=== PATIENT | male | born 1965 | race Caucasian/White ===

== ENCOUNTER 2017-03-21 10:17 | Emergency (ER) | payer OTHER ==
[2017-03-21] VITALS (8 sets, daily range): BP systolic 136–174; BP diastolic 86–102; PULSE 104–145; RESP 20–25; O2SAT 96–100
[~2017-03-21] VITALS: Ht 185.4 cm; Wt 113.6 kg
[2017-03-21] MEDS ORDERED: MeTOProlol 1 mg/mL 5 mL Inj IVPUSH ONE ×3 (10:35→12:05)
[2017-03-21 10:42] LABS: BASOPHILS % (AUTO) 0.2 % (0-3); EOSINOPHILS % (AUTO) 1.2 % (0-5); MONOCYTES % (AUTO) 9.8 % (4-12); Mean Corpuscular Hemoglobin 32.8 pg (27.0-35.0); NEUTROPHILS % (AUTO) 76.4 % (40-74); Platelet Count 253 bil/L (150-400)
--- NOTE | 2017-03-21 10:51 | DRSVH ---
PROCEDURE: X-RAY CHEST ONE VIEW, PORTABLE ([id number]) INDICATIONS: chest pain TECHNIQUE: One view of the chest was acquired. COMPARISON: None. FINDINGS: Surgical changes and devices: None. Lungs and pleura: No pleural effusions or pneumothorax. Lungs are clear. Mediastinum: Mediastinal contours appear normal. Heart size is normal. Bones and chest wall: No suspicious bony lesions. Overlying soft tissues appear unremarkable. IMPRESSION: No acute process. Dictated by: Alejandra Doan M.D. on 03/21/2017 at 10:49 Approved by: Alejandra Doan M.D. on 03/21/2017 at 10:49
--- NOTE | 2017-03-21 10:53 | ED.REPORT ---
HPI-Chest Pain 40 and Over Date of Service Mar 21, 2017 ED Provider: Haramn Joel MD The patient is a 52 year old male with history of borderline hypertension and anxiety, who presents to the emergency department from urgent care by EMS for tachycardia. Last night around 1200 AM the patient noticed chest pressure. He was already awake when his symptoms began. Of note the patient had used Viagra for the first time earlier in the evening. This morning he continued to have the chest pressure and also noticed palpitations. He has had similar symptoms in the past related to his anxiety but this episode has lasted longer and is more severe. He denies shortness of breath, diaphoresis, nausea, lightheadedness. He was given aspirin at urgent care. He does not have history of cardiac disease. His uncle had a heart attack at the age of 48. He does not use any illicit drugs. He drinks alcohol 6/7 days a week. He does not notice shakes or tremors if he does not drink. Nursing Notes Stated Complaint: TACHYCARDIA Chief Complaint: Dysrhythmia/Cardiac Nursing Notes Reviewed: Yes (Meds not reconciled) General Time Seen by MD: 10:24 Chief Complaint Chest pressure, Other (palpitations) Hx Obtained From: Patient, EMS Arrived By: Ambulance Sudden in Onset?: Yes Onset Occurred: Yesterday Symptom Duration: Since onset Location: : Chest left: Chest right Quality: Pressure Radiation: : Does not radiate Severity: Current: Mild Severity: Maximum: Moderate Recent Healthcare: No recent hospitalization, Recent doctor visit Similar Sx Previous: Yes (but not as severe) Past Medical History Past Medical History Borderline hypertension Anxiety Family History Noncontributory Smoking History Unknown if Ever Smoker Social History Drinks 6/7 days per week Other Social History: Local resident Ambulatory Status Independent Review of Systems Respiratory: Denies: Shortness of breath Cardiovascular: Reports: Chest pain, Palpitations GI: Denies: Nausea Skin: Denies Diaphoresis Neurologic: Denies: Lightheaded Complete sys rev & neg: except as marked. Physical Exam Initial Vital Signs Vital Signs (First) Date Time Temp Pulse Resp B/P Pulse Ox O2 Delivery O2 Flow Rate FiO2 03/21/17 10:24 37.4 145 25 174/88 100 Room Air Initial VS: Reviewed, Vital signs abnormal Head / Eyes: Atraumatic, Normocephalic, PERRL ENT: Mucous membranes moist, Conjunctiva normal, No scleral icterus Lymphatic: No lymphadenopathy Extremities: Vascular intact, Neuro intact, No swelling, No tenderness Skin: Warm, Dry, No cyanosis Neurologic: Alert, Oriented, Nonfocal Psychiatric: Mood/affect normal, Behavior normal, Normal thought content General/Constitutional: Awake, Alert, No acute distress, Well appearing, Cooperative Respiratory / Chest: Atraumatic, Breath sounds NL, Breath sounds = bilat, No respiratory distress, No rales, No rhonchi, No wheezing, No stridor, No chest tenderness Cardiovascular: Heart sounds NL, No gallop, No murmurs, No rubs, Cap refill not delayed, Peripheral circulation NL, Pulses = bilaterally, No gross BP differential Heart Rate / Rhythm: Positive: Tachycardia Abdomen: Atraumatic, Soft, Non-tender, McBurney's non-tender, No guarding, No rebound, BS normoactive, No distention, No hernia, No palpable mass Neck: Supple, Full range of motion, No swelling, Non-tender, No midline vertebral tend, No JVD Lower Extremity / Pelvis / MS: No swelling, Neurologic intact, Vascular intact , No edema Interpretation & Diagnostics Lab Results Interpretation Result Diagram: 03/21/17 1035 03/21/17 1035 Test 03/21/17 10:35 White Blood Count 13.2th/mm3 (3.8-10.1) Red Blood Count 4.61mil/mm3 (4.40-5.80) Hemoglobin 15.1g/dL (13.8-17.2) Hematocrit 42.4% (41.0-50.0) Mean Corpuscular Volume 92.0fL (81-100) Mean Corpuscular Hemoglobin 32.8pg (27.0-35.0) Mean Corpuscular Hemoglobin Concent 35.6% (32.0-37.0) Red Cell Distribution Width 12.6% (12.3-15.4) Platelet Count 253bil/L (150-400) Neutrophils (%) (Auto) 76.4% (40-74) Lymphocytes (%) (Auto) 12.1% (14-46) Monocytes (%) (Auto) 9.8% (4-12) Eosinophils (%) (Auto) 1.2% (0-5) Basophils (%) (Auto) 0.2% (0-3) Sodium Level 133mEq/L (134-144) Potassium Level 3.9mEq/L (3.5-5.2) Chloride Level 95mEq/L (97-108) Carbon Dioxide Level 19mmol/L (18-29) Blood Urea Nitrogen 8mg/dL (6-24) Creatinine 0.73mg/dL (0.76-1.27) Estimat Glomerular Filtration Rate 120mL/min (>59) Glucose Level 105mg/dL (60-99) Calcium Level 9.6mg/dL (8.5-10.1) Magnesium Level 1.8mg/dL (1.6-2.6) Total Bilirubin 0.8mg/dL (0.0-1.2) Aspartate Amino Transf (AST/SGOT) 54U/L (0-50) Alanine Aminotransferase (ALT/SGPT) 36U/L (0-44) Alkaline Phosphatase 63U/L (25-150) Troponin T 0.010ug/L (0.0-0.011) Total Protein 7.5g/dL (6.4-8.4) Albumin 4.3g/dL (3.4-5.0) Thyroid Stimulating Hormone (TSH) 1.070uIU/mL (0.450-4.500) Lab Results Interpretation: CBC nonspecific leukocytosis CMP normal TSH normal troponin negative (>12 hours of continous symptoms which are palpitations, serial troponins not indicated) ECG Interpretation ECG Interpretation: Narrow complex tachycardia at a rate of 140, no preexcitation syndrome findings evident, concern for the possibility of atrial flutter (not definitive) No interval change compared with EKG obtained at urgent care today, no prior EKG Time: 10:33 Interpreted by: ED physician ECG Interpretation: Sinus tachycardia at 112 Time: 11:55 Interpreted by: ED physician X-Ray Chest Interpretation Chest Xray Interpretation: IMPRESSION: No acute process. Dictated by: Alejandra Doan M.D. on 03/21/2017 at 10:49 Interpretation / Wet Read by: Interpret - Radiologist Re-Eval/Medical Decision Med Decision/Clinical Course This is a 52-year-old male was sent over from urgent care with a tachycardia at 140. Patient reports he took an illicit Viagra last night and since then has had persistent palpitations and vague chest discomfort. He has no previous cardiac history. He has no additional complaints except for mild anxiety. On exam the patient is mildly anxious, he does have a narrow complex tachycardia at 140. There are no delta waves, or other findings of a preexcitation syndrome on EKG. Given the rate atrial flutter since in the differential. He has no findings of heart failure, venous thromboembolism, does not appear toxic, dehydrated, or ill. He received metoprolol as heart rate improved. Symptoms resolved. His x-ray and lab work not reveal a dangerous etiology. Strongly suspicious this may be related to the illicit (not clear if it was definitely Viagra, as it was obtained and not prescribed to him, but from the street) medication. He is advised to avoid. He is discharged in improved condition. Routine and return precautions reviewed. Source of Hx: Old records, EMS Time of Eval: 12:50 Re-Evaluation/Progress Note: Rechecked the patient. Discussed results, diagnosis, and plan for discharge. All questions were addressed. Differential Diagnosis: Positive: Dysrhythmia, Negative: Acute coronary syndrome, Acute myocardial infarct, Congestive heart failure, Esophageal rupture, Gun shot wound chest, Musculoskeletal pain, Myocardial infarction, Pneumonia, Pneumothorax, Pulmonary edema, Pulmonary embolism, Stab wound chest, Unstable angina Counseled Regarding: Diagnosis, Lab results, Need for follow-up, When/why to return to ED Discharge & Departure Primary Impression: Adverse effects of medication Encounter type: initial encounter Qualified Code: T88.7XXA - Unspecified adverse effect of drug or medicament, initial encounter Additional Impression: Tachycardia Disposition: Home Discharge Condition All VS Reviewed: Yes Condition: Stable Additional Instructions: 1. The rapid heart rate ("tachycardia") may have resulted from the Viagra you took last evening. 2. Your heart tests and electrolytes were normal. 3. Activities as tolerated. 4. Return if new or worsening symptoms. Referrals: Seth Lagos MD (PCP) Scribe Attestation Portions of this note were transcribed by Beatriz Gibson. I, Dr. Joel personally performed the history, physical exam and medical decision-making; I reviewed and confirmed the accuracy of the information in the transcribed note. Signed by: Peter Bain, 03/21/2017 at 1300. copies to: Seth Lagos MD, Matthew F MD Mar 21, 2017 10:53 Beatriz Gibson Mar 21, 2017 10:58
[2017-03-21 11:13] LABS: TROPONIN T 0.01 ug/L (0.0-0.011)
[2017-03-21 11:34] LABS: Magnesium 1.8 mg/dL (1.6-2.6)
== END 2017-03-21 13:22 | disposition home or self-care (01) ==
LOC: EDBD 10:17 → EDUNIT# 10:17 → SED 10:17
DX: R00.0 Tachycardia, unspecified (principal); T46.7X5A Adverse effect of peripheral vasodilators, initial encounter; Y93.89 Activity, other specified; Y92.9 Unspecified place or not applicable; Y99.8 Other external cause status; F41.9 Anxiety disorder, unspecified
CPT/HCPCS: 36415; 71010; 80053; 82948; 83735; 84443; 84484; 85025; 93005; 96374; 96375; 96376; 99285; J2060